=== PATIENT | female | born 1975 | race Caucasian/White ===

== ENCOUNTER 2023-12-29 16:38 | Emergency (ER) | payer OTHER ==
[~2023-12-29] VITALS: Ht 165.1 cm; Wt 87.0 kg
[2023-12-29] MEDS ORDERED: VICTOZA 3-0.6 MG/0.1 SUB-Q (16:58)
[2023-12-29] MEDS ORDERED: METFORMIN HCL1000 MG PO (16:59)
[2023-12-29] MEDS ORDERED: CYCLOBENZAPRINE10 MG PO (17:31)
[2023-12-29 17:48] VITALS: BP 142/91
== END 2023-12-29 17:48 | disposition home or self-care (01) ==
LOC: ED 16:38
DX: S29.012A Strain of muscle and tendon of back wall of thorax, initial encounter (principal); E11.9 Type 2 diabetes mellitus without complications; X50.0XXA Overexertion from strenuous movement or load, initial encounter; Y99.0 Civilian activity done for income or pay; Z79.84 Long term (current) use of oral hypoglycemic drugs; Z79.899 Other long term (current) drug therapy; Z88.6 Allergy status to analgesic agent; Z88.5 Allergy status to narcotic agent
CPT/HCPCS: 99283